=== PATIENT | female | born 1990 | race Caucasian/White ===

== ENCOUNTER 2018-04-19 01:49 | Inpatient (IN) | payer MEDICAID ==
[~2018-04-19] VITALS: Ht 175.3 cm; Wt 56.7 kg
[2018-04-19] VITALS (8 sets, daily range): BP systolic 103–126; BP diastolic 54–88
[2018-04-19 02:45] LABS: BASOPHILS % (AUTO) 0.4 % (0.0-2.0); EOSINOPHILS % (AUTO) 1.3 % (1.0-6.0); HEMATOCRIT 39.2 % (36-46); HEMOGLOBIN 13.7 g/dL (12.0-16.0); LYMPHOCYTES # (AUTO) 2.2 K/uL (1.0-4.8); LYMPHOCYTES % (AUTO) 29.4 % (22.0-44.0); MEAN CORPUSCULAR HEMOGLOBIN 31.8 pg (26.0-34.0); MEAN CORPUSCULAR HGB CONC 34.9 G/dL (31.0-37.0); MEAN CORPUSCULAR VOLUME 91 fL (80-100); MONOCYTES # (AUTO) 0.6 K/uL (0.1-1.0); MONOCYTES % (AUTO) 8.5 % (2.0-9.0); NEUTROPHILS # (AUTO) 4.4 K/uL (1.8-7.7); NEUTROPHILS % (AUTO) 60.4 % (40.0-70.0); PLATELET COUNT (AUTO) 151 K/uL (150-450); RED CELL DISTRIBUTION WIDTH 13.4 % (11.5-14.5)
[2018-04-19] MEDS ORDERED: TRAZ-147 PO (02:45)
[2018-04-19] MEDS ORDERED: HYDR-4031 PO (02:45)
[2018-04-19] MEDS ORDERED: PARO20TA24 PO (02:45)
[2018-04-19] MEDS ORDERED: DIVA500T35 PO (02:45)
[2018-04-19] MEDS ORDERED: LORazepam 2 MG TABLET PO PRN ×2 (02:45→10:30)
[2018-04-19 02:56] LABS: ANION GAP 13 mmol/L (8-16); CALCIUM, TOTAL 8.1 mg/dL (8.8-10.5); CARBON DIOXIDE 24 mmol/L (22-29); CHLORIDE 107 mmol/L (98-107); GLOMERULAR FILTR. RATE CALC > 60 mL/min (>60); GLUCOSE,RANDOM 89 mg/dL (70-110); SODIUM SERUM 144 mmol/L (136-145); UREA NITROGEN, BLOOD 5 mg/dL (7-18)
[2018-04-19 03:02] LABS: ALANINE AMINOTRANSFERASE 46 U/L (12-78); ALKALINE PHOSPHATASE 71 U/L (46-116); ASPARTATE AMINOTRANSFERASE 49 U/L (15-37); BILIRUBIN,TOTAL 0.3 mg/dL (0.1-1.0)
[2018-04-19 03:22] LABS: CHOL/HDL RATIO 2.7 (3.9-5.7); CHOLESTEROL 136 mg/dL (131-200); FREE T4 (FREE THYROXINE) 1.32 ng/dL (0.76-1.46); HDL CHOLESTEROL 51 mg/dL (40-60); LDL CHOL (CALC.) 57 mg/dL (0-130); THYROID STIMULATING HORMONE 1.04 uIU/mL (0.36-3.74); TRIGLYCERIDES 138 mg/dL (15-150)
[2018-04-19] MEDS ORDERED: PERTUSS(ACELL),DIPH,TET VAC/PF 0.5 ML VIAL IM ONE (03:30)
[2018-04-19] MEDS ORDERED: SODIUM CHLORIDE 0.9% 250 ML IRRIG SOLUTION BOTTLE IRRIG ONE (03:30)
[2018-04-19] MEDS ORDERED: POTASSIUM CHLORIDE 20 MEQ ER TABLET PO ONE ×2 (03:30→21:45)
[2018-04-19 04:18] LABS: VALPROIC ACID 76 mcg/mL (50-100)
[2018-04-19] MEDS: ZOLPIDEM TARTRATE 10 MG TABLET PO PRN (04:19)
[2018-04-19] MEDS: HALOPERIDOL 5 MG TABLET PO PRN (04:19)
[2018-04-19] MEDS ORDERED: LORazepam 2 MG/ML VIAL IM ONE (04:30)
[2018-04-19] MEDS ORDERED: DiphenhydrAMINE HCL 50 MG/ML VIAL IM ONE (04:30)
[2018-04-19] MEDS ORDERED: HALOPERIDOL LACTATE 5 MG/ML VIAL IM ONE (04:30)
[2018-04-19] MEDS: NICOTINE 21 MG/24 HOUR PATCH TD SCH (12:22)
[2018-04-19] MEDS: PARoxetine HCL 20 MG TABLET PO SCH (13:25)
[2018-04-19] MEDS: ACETAMINOPHEN 325 MG TABLET PO PRN (17:28)
[2018-04-19] MEDS: QUEtiapine FUMARATE 100 MG TABLET PO SCH (20:08)
[2018-04-20] VITALS (8 sets, daily range): BP systolic 105–133; BP diastolic 58–88
[2018-04-20] MEDS ORDERED: LORazepam 2 MG TABLET PO PRN (07:00)
[2018-04-20] MEDS: PARoxetine HCL 20 MG TABLET PO SCH (09:37)
[2018-04-20] MEDS: NICOTINE 21 MG/24 HOUR PATCH TD SCH (09:38)
[2018-04-20] MEDS: LORazepam 2 MG TABLET PO SCH ×4 (09:39→20:30)
[2018-04-20] MEDS: ACETAMINOPHEN 325 MG TABLET PO PRN (13:19)
[2018-04-20] MEDS: QUEtiapine FUMARATE 100 MG TABLET PO SCH (20:30)
[2018-04-20] MEDS: ZOLPIDEM TARTRATE 10 MG TABLET PO PRN (21:55)
[2018-04-21 00:30] VITALS: BP 130/69
[2018-04-21 08:24] VITALS: BP 111/66
[2018-04-21] MEDS: LORazepam 2 MG TABLET PO SCH ×4 (08:54→20:14)
[2018-04-21] MEDS: PARoxetine HCL 20 MG TABLET PO SCH (08:54)
[2018-04-21] MEDS: NICOTINE 21 MG/24 HOUR PATCH TD SCH (08:55)
[2018-04-21] MEDS ORDERED: BACITRACIN 28.4 GM OINTMENT TP PRN (09:30)
[2018-04-21 16:00] VITALS: BP 118/77
[2018-04-21 16:09] VITALS: BP 118/77
[2018-04-21] MEDS: QUEtiapine FUMARATE 100 MG TABLET PO SCH (20:14)
[2018-04-21] MEDS: ZOLPIDEM TARTRATE 10 MG TABLET PO PRN (20:14)
[2018-04-21] MEDS: HALOPERIDOL 5 MG TABLET PO PRN (21:32)
[2018-04-21] MEDS: HydrOXYzine PAMOATE 25 MG CAPSULE PO PRN (21:32)
[2018-04-22 06:59] VITALS: BP 129/86
[2018-04-22 07:00] VITALS: BP 129/86
[2018-04-22] MEDS ORDERED: LORazepam 1 MG TABLET PO PRN (07:00)
[2018-04-22] MEDS: NICOTINE 21 MG/24 HOUR PATCH TD SCH (08:19)
[2018-04-22] MEDS: HydrOXYzine PAMOATE 25 MG CAPSULE PO PRN (08:19)
[2018-04-22] MEDS: PARoxetine HCL 20 MG TABLET PO SCH (08:19)
[2018-04-22 08:22] VITALS: BP 127/67
[2018-04-22] MEDS ORDERED: LORazepam 1 MG TABLET PO SCH (09:00)
[2018-04-22] MEDS ORDERED: QUET100T PO (09:50)
[2018-04-23] MEDS ORDERED: LORazepam 1 MG TABLET PO PRN (07:00)
== END 2018-04-22 11:50 | disposition home or self-care (01) | DRG 751 ==
LOC: EMS 01:50 → EDBD 01:50 → B3A 07:07
PROVIDERS: ADMIT Psychiatry & Neurology Psychiatry; ATTEND Psychiatry & Neurology Psychiatry
DX: F33.3 Major depressive disorder, recurrent, severe with psychotic symptoms (principal); R45.851 Suicidal ideations; Z78.1 Physical restraint status; E87.6 Hypokalemia; F41.9 Anxiety disorder, unspecified; F10.129 Alcohol abuse with intoxication, unspecified; F12.90 Cannabis use, unspecified, uncomplicated; G47.00 Insomnia, unspecified; F60.3 Borderline personality disorder; M25.512 Pain in left shoulder; F19.10 Other psychoactive substance abuse, uncomplicated; Z91.19 Patient's noncompliance with other medical treatment and regimen; Z88.2 Allergy status to sulfonamides; Z79.899 Other long term (current) drug therapy; Z71.51 Drug abuse counseling and surveillance of drug abuser; Z71.41 Alcohol abuse counseling and surveillance of alcoholic
CPT/HCPCS: 84132; 84439; 84443; 96372; 99285; G0480; J1200; J1630; J2060

== ENCOUNTER 2018-04-20 14:02 | Emergency (ER) | payer MEDICAID ==
[~2018-04-20] VITALS: Ht 162.6 cm; Wt 55.0 kg
[~2018-04-20 14:02] MED LIST: DIVA500T35 PO; HYDR-4031 PO; PARO20TA24 PO; TRAZ-147 PO
[2018-04-20] MEDS ORDERED: PERTUSS(ACELL),DIPH,TET VAC/PF 0.5 ML VIAL IM ONE (16:00)
[2018-04-20] MEDS ORDERED: BACITRACIN 0.9 GM PACKET OINTMENT TP ONE (16:00)
[2018-04-20 16:02] VITALS: BP 119/84
== END 2018-04-20 16:39 | disposition home or self-care (01) ==
LOC: EMS 14:05
DX: S40.012A Contusion of left shoulder, initial encounter (principal); S00.83XA Contusion of other part of head, initial encounter; S20.212A Contusion of left front wall of thorax, initial encounter; F17.210 Nicotine dependence, cigarettes, uncomplicated; Z88.2 Allergy status to sulfonamides; X78.8XXA Intentional self-harm by other sharp object, initial encounter; Y93.89 Activity, other specified; Y92.89 Other specified places as the place of occurrence of the external cause; Y99.8 Other external cause status
CPT/HCPCS: 71101; 90471; 90715; 99284